=== PATIENT | female | born 2000 | race Two or more races ===

== ENCOUNTER 2020-05-03 08:30 | Emergency (ER) | payer OTHER ==
[~2020-05-03] VITALS: Ht 172.7 cm; Wt 90.7 kg
== END 2020-05-03 16:07 | disposition home or self-care (01) ==
LOC: ER 08:30
DX: K52.89 Other specified noninfective gastroenteritis and colitis (principal)

== ENCOUNTER 2020-06-28 13:47 | Emergency (ER) | payer OTHER ==
[~2020-06-28] VITALS: Ht 172.7 cm; Wt 105.2 kg
[2020-06-28] MEDS ORDERED: PRENATAL + DHA1 EAC1 PO (13:52)
== END 2020-06-28 17:44 | disposition home or self-care (01) ==
LOC: ER 13:47
DX: O26.851 Spotting complicating pregnancy, first trimester (principal); O26.841 Uterine size-date discrepancy, first trimester; Z34.01 Encounter for supervision of normal first pregnancy, first trimester

== ENCOUNTER → 2021-12-05 | Emergency (ER) | payer OTHER ==
[~2021-12-05] VITALS: Ht 172.7 cm; Wt 108.0 kg
[~2021-12-05] MED LIST: PRENATAL + DHA1 EAC1 PO
== END | disposition home or self-care (01) ==
LOC: ER 08:58
DX: L50.9 Urticaria, unspecified (principal); L25.9 Unspecified contact dermatitis, unspecified cause